=== PATIENT | male | born 2000 | race Caucasian/White ===

== ENCOUNTER → 2024-01-21 | Outpatient (CLI) | payer MEDICAID ==
--- NOTE | 2024-01-21 21:03 | US ---
EXAMINATION TYPE: US mass soft tissue chest/back DATE OF EXAM: 01/21/2024 COMPARISON: NONE CLINICAL INDICATION: Male, 23 years old with history of L02.91 CUTANEOUS ABSCESS, UNSPECIFIED; palpab le area felt for 1 week on his back TECHNIQUE: Soft tissue scan of left lumbar region FINDINGS: At area of palpable there is no skin discoloration or recent injury, soft palpable area di d no produce any abnormality, possible isoechoic lipoma versus other etiology IMPRESSION: There is an abundance of fat in the area of palpable abnormality. Findings could represen t underlying lipoma. Consider CT imaging with palpable marker placement for correlation.
== END | disposition home or self-care (01) ==
LOC: RADUSWWP 14:37
PROVIDERS: ATTEND Family Medicine
DX: L02.91 Cutaneous abscess, unspecified (principal)